=== PATIENT | female | born 1990 | race Caucasian/White ===

== ENCOUNTER 2019-04-10 16:21 | Inpatient (IN) | payer OTHER ==
--- NOTE | 2019-04-10 17:23 | PN ---
Progress Note - Progress Note Date of Service: 04/10/19 Note: S: Reports contractions beginning today around 2:30 pm, about 5-10 minutes apart. She also noted bloody show when she went to the bathroom. States she is nervous about course of labor as she had a rapid labor after SROM with her first baby. O: B/P: 119/70, P: 73, R: 18, T: 98.3 FHR: baseline 140, moderate variability, +accelerations, no decelerations UCs: q2-9 min, moderate VE: 2/90/-2, intact. bloody show noted A: IUP at 39 3/7 weeks Category I FHR, no evidence of metabolic acidemia Early active labor vs false labor P: Discussed normal course of labor, how to tell when labor begins Re-assess for cervical change in 1-2 hours or sooner as needed
--- NOTE | 2019-04-10 19:24 | HP ---
General Information - Reason for Visit Contractions - General Information Maternal Age: 28 Grav: 2 Para: 1 SAB: 0 IEA: 0 Estimated Due Date: 04/14/19 Determined By: LMP Gestational Age in Weeks/Days: 39 01/28 Maternal Blood Type and Rh: O Positive - Results this Serology/RPR Result: Non-Reactive Rubella Result: Immune HBsAg Result: Negative HIV Result: Negative GBS Culture Result: Negative Past Medical History Delivery History: Hx Uncomplicated Vaginal Delivery Pertinent Past Medical History: Non-Contributory Pertinent Past Surgical History: See Records Past Surgical History Comment: [place] Tooth Extraction - 2006 Pertinent Family History: See Records Family History Comment: half brother with hypoplastic left heart syndrome - Antepartal Records Antepartal Records: Reviewed, Uncomplicated Review of Systems Constitutional: Uncomfortable CV Complaint: No Respiratory: Shortness of Breath: No Gastrointestinal: No Nausea/Vomiting, Soft Stool Genitourinary: No Dysuria, No Leaking Fluid Musculoskeletal: No Epigastric Pain, Contractions Neurological: No Headache, No Visual Changes Movement: Normal Exam Allergies/Adverse Reactions: Allergies No Known Allergies Allergy (Verified 04/10/19 16:53) B/P: 117/73, P: 63, R: 18, T: 97.7 - Measurements Height: 5 ft 5.5 in Weight: 167 lb Weight in lbs: 167.684199 Body Mass Index (BMI): 27.3 Pre- Weight: 130 lb Weight Gained This : 37 lbs and 0 ozs - Exam Breast: Breast Exam Deferred CVA: No CVA Tenderness Extremities: No Edema Heart: Normal Rhythm/Heart Sounds HEENT: No Significant Findings Lungs: Clear Bilaterally Reflexes: DTR 2+ Thyroid: No Thyromegaly - Abdominal Exam Abdomen Exam: Non-Tender, Fundal Height Consistent with Dates - Ultrasound/Biophysical Profile Ultrasound Status: Not Done Targeted Exam Findings See L&D Outpatient Visit Provider Note for Findings: N/A Estimated Weight: 8 lb by dakota's Cervical Exam: 4cm Effacement: 90% Station: -2 Presenting Part: Vertex Membrane Status: Intact Bleeding/Discharge: Bloody Show EFM Findings - External Monitor Findings Baseline Heart Rate: 150 External Monitor Findings: Accelerations Present, No Pattern of Variable or Late Decelerations, Variability Moderate, Baseline Stable Contractions: Regular, Moderate, 45-90 Seconds Contraction Frequency: 3-5 min Assessment/Plan - Assessment A: IUP at 39 3/7 weeks No evidence of metabolic acidemia Early Active Labor GBS negative P: Admit to inpatient Discussed plan for pain management - prefers unmedicated Reassess PRN Anticipate SVB - Plan Plan: Admit - Anticipate Vaginal Delivery - Date/Time of Admission Date of Admission: 04/10/19 Time of Admission: 19:00
[2019-04-10] MEDS ORDERED: Lactated Ringers 1000 ML Bag* 1,000 ML IV ONE (19:28)
[2019-04-10] MEDS ORDERED: Buffered Lidocaine 1% SYRIN* 1 ML/SYRINGE INTRADERM ONE (19:28)
[2019-04-10] MEDS ORDERED: Lactated Ringers 1000 ML Bag* 1,000 ML IV SCH ×2 (20:00→23:00)
[2019-04-10] MEDS ORDERED: Acetaminophen TAB* 325 MG PO PRN (22:03)
[2019-04-10] MEDS ORDERED: Glycerin ADULT SUPP PR PRN (22:03)
--- NOTE | 2019-04-10 22:29 | PROCNOTE ---
[facility] OB: Delivery Note - Delivery A Date of : 04/10/19 Time of : 21:31 [place] Sex: Male Score 1 Minute: 9 Score 5 Minutes: 10 Gestational Age in Weeks and Days at Delivery: 39 Weeks and 3 Days Delivery Method: Spontaneous Vaginal Labor: Spontaneous Did Patient attempt ?: N/A, No Previous Amniotic Fluid: Clear Estimated Blood Loss: 200 Anesthesia/Analgesia: None - Nursery Level of Nursery: Regular/Bedside - Perineum Perineal Injury: Perineal Laceration, 1st Degree Perineal Repair: By Delivering Practioner - Additional Delivery Notes Additional Delivery Notes: in spontaneous labor experienced SROM at 2045, began pushing on hands and knees at 2125. Slow controlled delivery of head OA to MARTINA at 2130, shoulders followed with good maternal effort on next push. Liveborn male infant delivered through maternal legs to abdomen, spontaneous cry and HR >110. Apgars 9 and 10. Mother assisted into sitting position, cord clamped x 2 and cut by FOB once pulsations ceased. Intact delivery of joce placenta at 2134. Fundus firm with massage. Perineum inspected, 1st degree laceration noted, repaired in the usual fashion. Mother and infant stable at time of note, initiated. DJE=730 cc.
[2019-04-10] MEDS ORDERED: Lidocaine 1% INJ* 10 MG/ML 30 ML SDV INJ ONE (22:31)
[2019-04-10] MEDS: Ibuprofen TAB* 600 MG PO PRN (22:35)
[2019-04-10] MEDS: Dibucaine 1% 28.35 GM TUBE PR PRN (22:35)
[2019-04-10] MEDS: Witch Hazel PAD* JAR TOPICAL PRN (22:35)
[2019-04-11] MEDS ORDERED: Lidocaine 1% INJ* 10 MG/ML 30 ML SDV ONE (01:03)
[2019-04-11] MEDS: Ibuprofen TAB* 600 MG PO PRN ×3 (06:13→18:01)
[2019-04-11 06:26] LABS: ABS Basophils 0.1 10^3/ul (0-0.2); ABS Eosinophils 0.1 10^3/ul (0-0.6); ABS Lymphocytes 2.6 10^3/ul (1.0-4.8); ABS Monocytes 0.9 10^3/ul (0-0.8); ABS Neutrophils 12.9 10^3/ul (1.5-7.7); Eosinophil % 0.4 %; Hematocrit 39 % (35-47); Lymphocyte % 15.5 %; Mean Corpuscular HGB Conc 34 g/dL (31-36); Mean Corpuscular Hemoglobin 31 pg (27-31); Mean Corpuscular Volume 91 fL (80-97); Mean Platelet Volume 10.4 fL (7.4-10.4); Platelet Count 167 10^3/uL (150-450); Red Blood Count 4.25 10^6 /uL (3.70-4.87); Red Cell Distribution Width 13 % (10.5-15); White Blood Count 16.6 10^3/uL (3.5-10.8)
[2019-04-11] MEDS: Docusate CAP* 100 MG PO SCH ×3 (08:26→20:22)
[2019-04-11] MEDS ORDERED: Simethicone TAB* 80 MG TAB.CHEW PO SCH (08:30)
[2019-04-11] MEDS ORDERED: Ferrous Gluconate TAB* 324 MG TAB PO SCH (09:00)
[2019-04-11] MEDS: Dibucaine 1% 28.35 GM TUBE PR PRN (14:24)
[2019-04-11] MEDS: Witch Hazel PAD* JAR TOPICAL PRN (14:24)
[2019-04-12] MEDS: Ibuprofen TAB* 600 MG PO PRN ×2 (01:27→07:44)
[2019-04-12] MEDS: Dibucaine 1% 28.35 GM TUBE PR PRN (05:46)
[2019-04-12] MEDS: Witch Hazel PAD* JAR TOPICAL PRN (05:46)
[2019-04-12] MEDS: Docusate CAP* 100 MG PO SCH (07:44)
[2019-04-12 09:13] VITALS: BP 126/72
== END 2019-04-12 10:30 | disposition home or self-care (01) | DRG 807 ==
LOC: MCHOBOUT 16:21 → MCHOB 19:13
PROVIDERS: ADMIT Midwife; ATTEND Midwife
PROC: 10E0XZZ Delivery of Products of Conception, External Approach (ICD-10-PCS; principal; 2019-04-10)
PROC: 0HQ9XZZ Repair Perineum Skin, External Approach (ICD-10-PCS; 2019-04-10)
DX: O99.344 Other mental disorders complicating childbirth (principal); Z37.0 Single live birth; F41.9 Anxiety disorder, unspecified; O70.0 First degree perineal laceration during delivery; Z3A.39 39 weeks gestation of pregnancy
CPT/HCPCS: 36415; 85025; A9270-GY